=== PATIENT | female | born 1965 | race Two or more races ===

== ENCOUNTER 2021-08-15 14:35 | Outpatient (CLI) | payer OTHER | END 2021-08-15 14:47 | disposition home or self-care (01) | LOC: LAB 14:35 | DX: N95.2 Postmenopausal atrophic vaginitis (principal); Z11.59 Encounter for screening for other viral diseases ==

== ENCOUNTER 2021-10-13 10:59 | Outpatient (CLI) | payer OTHER | END 2021-10-13 11:08 | disposition home or self-care (01) | LOC: MAMO-SONO 10:59 | DX: Z12.31 Encounter for screening mammogram for malignant neoplasm of breast (principal) ==

== ENCOUNTER → 2021-10-19 10:12 | Outpatient (CLI) | payer OTHER | END | disposition home or self-care (01) | LOC: LAB 10:12 | DX: Z11.59 Encounter for screening for other viral diseases (principal) ==

== ENCOUNTER 2022-06-06 09:53 | Outpatient (CLI) | payer OTHER | END 2022-06-06 10:00 | disposition home or self-care (01) | LOC: RAD 09:53 | PROVIDERS: ATTEND Family Medicine | DX: M79.671 Pain in right foot (principal); M79.672 Pain in left foot ==